=== PATIENT | female | born 1980 | race Caucasian/White ===

== ENCOUNTER 2018-04-18 10:04 | Emergency (ER) | payer MEDICAID ==
[~2018-04-18] VITALS: Ht 157.5 cm; Wt 75.0 kg
[~2018-04-18 10:04] MED LIST: BENZ1LOZ61 PO; IBUP-1051 PO; METH-360 PO; SILV20CR13 TOP
[2018-04-18 10:09] VITALS: BP 133/47
[2018-04-18] MEDS ORDERED: HYDR-565 PO (10:37)
== END 2018-04-18 10:48 | disposition home or self-care (01) ==
LOC: ER 10:05
DX: M25.562 Pain in left knee (principal); G89.29 Other chronic pain; F17.200 Nicotine dependence, unspecified, uncomplicated; Z98.51 Tubal ligation status
CPT/HCPCS: 99284

== ENCOUNTER 2020-04-09 13:27 | Emergency (ER) | payer MEDICAID ==
[~2020-04-09] VITALS: Ht 157.5 cm; Wt 78.3 kg
[2020-04-09 14:56] LABS: BASOPHILS % (AUTO) 0.7 % (0-1); EOSINOPHILS # (AUTO) 0.2 X10'3 (0-0.9); EOSINOPHILS % (AUTO) 2.2 % (0-6); HEMATOCRIT 46.6 % (35.0-45.0); HEMOGLOBIN 15.7 g/dl (12.0-16.0); LYMPHOCYTES # (AUTO) 1.9 X10'3 (1.1-4.8); LYMPHOCYTES % (AUTO) 26.4 % (21-51); MEAN CORPUSCULAR HEMOGLOBIN 32.6 PG (27.0-31.0); MEAN CORPUSCULAR HGB CONC 33.6 g/dL (33.0-36.5); MEAN CORPUSCULAR VOLUME 96.9 FL (78-98); MEAN PLATELET VOLUME 9.1 FL (7.4-10.4); MONOCYTES # (AUTO) 0.7 X10'3 (0-0.9); NEUTROPHILS # (AUTO) 4.6 X10'3 (1.8-7.7); NEUTROPHILS % (AUTO) 61.7 % (42-75); PLATELET COUNT 260 X10'3 (140-440); RED BLOOD COUNT 4.82 X10'6 (4.20-5.60); RED CELL DISTRIBUTION WIDTH 13.2 % (11.5-14.5); WHITE BLOOD COUNT 7.4 X10'3 (4.5-11.0)
[2020-04-09 15:09] LABS: ANION GAP 7 (8-16); BILIRUBIN,TOTAL 0.3 MG/DL (0.1-1.0); BLOOD UREA NITROGEN 12 MG/DL (7-18); BUN/CREATININE RATIO 13.2 (6.6-38.0); CALCIUM 9.4 MG/DL (8.5-10.1); CHLORIDE 103 MMOL/L (99-107); CREATININE 0.91 MG/DL (0.40-0.90); GLUCOSE 90 MG/DL (70-104); POTASSIUM 4.2 MMOL/L (3.5-5.1); SODIUM 138 MMOL/L (135-145); TOTAL CARBON DIOXIDE 28.3 MMOL/L (24-32); TOTAL PROTEIN 7.6 G/DL (6.4-8.2); eGFR 70 ML/MIN
[2020-04-09 15:10] LABS: ALANINE AMINOTRANSFERASE 24 U/L (12-78); ALBUMIN 3.7 G/DL (3.4-5.0); ALBUMIN/GLOBULIN RATIO 0.9 (1.1-1.5); ALKALINE PHOSPHATASE 57 IU/L (46-116); ASPARTATE AMINO TRANSFERASE 9 U/L (10-37); LIPASE 141 U/L (73-393)
[2020-04-09 15:37] LABS: BETA HCG,QUANTITATIVE < 1.0 mIU/ml
[2020-04-09] MEDS ORDERED: ketorolac tromethamine 15mg/ml inj. IM ONE (16:10)
[2020-04-09 18:00] VITALS: BP 131/54
[2020-04-09] MEDS ORDERED: ONDA4TAB6 PO (18:25)
[2020-04-09] MEDS ORDERED: FAMO20TA44 PO (18:25)
[2020-04-09] MEDS ORDERED: OMEP20CA15 PO (18:25)
[2020-04-09] MEDS ORDERED: SUCR1TAB34 PO (18:25)
== END 2020-04-09 18:40 | disposition home or self-care (01) ==
LOC: ER 13:27
DX: N83.292 Other ovarian cyst, left side (principal); R10.32 Left lower quadrant pain; R10.13 Epigastric pain; G89.29 Other chronic pain; Z98.51 Tubal ligation status; Z79.899 Other long term (current) drug therapy
CPT/HCPCS: 36415; 74176; 76830; 76856; 80053; 83605; 83690; 84702; 85025; 93976; 96372; 99285; J1885

== ENCOUNTER 2020-05-18 21:46 | Inpatient (IN) | payer MEDICAID ==
[~2020-05-18] VITALS: Ht 157.5 cm; Wt 79.7 kg
[~2020-05-18 21:46] MED LIST changes: +FAMO20TA44 PO; +OMEP20CA15 PO; +ONDA4TAB6 PO; +SUCR1TAB34 PO
[2020-05-18 22:26] LABS: CLARITY,URINE SLIGHTLY CLOUDY (Clear); COLOR,URINE AMBER (Yellow); GLUCOSE, URINE NEGATIVE (Neg); KETONES,URINE NEGATIVE (Neg); LEUKOCYTE ESTERASE ,URINE NEGATIVE (Neg); NITRITES, URINE NEGATIVE (Neg); OCCULT BLOOD,URINE LARGE (Neg); PROTEIN,URINE NEGATIVE (Neg); UROBILINOGEN,URINE >=8.0 E.U/dL (0.2-1.0)
[2020-05-18 22:26] LABS: BASOPHILS # (AUTO) 0.1 X10'3 (0-0.2); BASOPHILS % (AUTO) 0.6 % (0-1); EOSINOPHILS # (AUTO) 0.2 X10'3 (0-0.9); EOSINOPHILS % (AUTO) 1.7 % (0-6); HEMATOCRIT 42.1 % (35.0-45.0); LYMPHOCYTES % (AUTO) 11.4 % (21-51); MEAN CORPUSCULAR HEMOGLOBIN 32.6 PG (27.0-31.0); MEAN CORPUSCULAR HGB CONC 33.2 g/dL (33.0-36.5); MEAN CORPUSCULAR VOLUME 98.3 FL (78-98); MEAN PLATELET VOLUME 8.4 FL (7.4-10.4); MONOCYTES # (AUTO) 0.7 X10'3 (0-0.9); MONOCYTES % (AUTO) 7.4 % (2-12); NEUTROPHILS # (AUTO) 7.1 X10'3 (1.8-7.7); NEUTROPHILS % (AUTO) 78.9 % (42-75); PLATELET COUNT 303 X10'3 (140-440); RED BLOOD COUNT 4.28 X10'6 (4.20-5.60); RED CELL DISTRIBUTION WIDTH 13.1 % (11.5-14.5)
[2020-05-18 22:27] LABS: URINE HCG NEGATIVE (NEG)
[2020-05-18 22:28] LABS: UA COLLECTION TYPE CLN CATCH MIDSTREAM
[2020-05-18 22:38] LABS: ALANINE AMINOTRANSFERASE 664 U/L (12-78); ALBUMIN 3.6 G/DL (3.4-5.0); ALBUMIN/GLOBULIN RATIO 0.9 (1.1-1.5); ALKALINE PHOSPHATASE 274 IU/L (46-116); ANION GAP 7 (8-16); ASPARTATE AMINO TRANSFERASE 376 U/L (10-37); BILIRUBIN,TOTAL 1.7 MG/DL (0.1-1.0); BLOOD UREA NITROGEN 10 MG/DL (7-18); BUN/CREATININE RATIO 10.8 (6.6-38.0); CALCIUM 8.9 MG/DL (8.5-10.1); CHLORIDE 102 MMOL/L (99-107); CREATININE 0.93 MG/DL (0.40-0.90); GLUCOSE 103 MG/DL (70-104); LIPASE 93 U/L (73-393); POTASSIUM 3.9 MMOL/L (3.5-5.1); SODIUM 138 MMOL/L (135-145); TOTAL CARBON DIOXIDE 28.6 MMOL/L (24-32); TOTAL PROTEIN 7.6 G/DL (6.4-8.2); eGFR 68 ML/MIN
[2020-05-18 22:39] LABS: BACTERIA,URINE NONE SEEN /HPF (Neg); MUCUS STRANDS FEW /LPF (Neg); RBC,URINE TNTC /HPF (0-2); SQUAMOUS EPITHELIAL CELL,UR MODERATE /LPF (FEW); WBC,URINE 0-4 /HPF (0-4)
[2020-05-18] MEDS ORDERED: normal saline 1000ML IV soln IVB ONE (23:15)
[2020-05-18] MEDS ORDERED: ondansetron/PF 4mg/2ml inj IV ONE (23:15)
[2020-05-18] MEDS ORDERED: morphine 4 MG/ML inj SYRINge IV ONE (23:15)
[2020-05-19] VITALS (12 sets, daily range): BP systolic 96–129; BP diastolic 36–84
[2020-05-19] MEDS ORDERED: piperacillin/tazo 3.375gm/50ml 50 ML IV ONE (00:15)
[2020-05-19] MEDS ORDERED: magnesium hydroxide 30ml (MOM) UD suspension PO PRN (00:20)
[2020-05-19] MEDS ORDERED: magnesium 2GM in 50ml NS 50 ML IV PRN (00:20)
[2020-05-19] MEDS ORDERED: magnesium 4gm in 100ml NS 100 ML IV PRN (00:20)
[2020-05-19] MEDS ORDERED: mag hydrox/Alum hydrox/simeth 30ml oral suspension PO PRN (00:20)
[2020-05-19] MEDS ORDERED: potassium CL 10mEq/100ml bag 100 ML IV PRN ×2 (00:20)
[2020-05-19] MEDS ORDERED: potassium Cl 20 mEq SR tablet PO PRN ×2 (00:20)
[2020-05-19] MEDS ORDERED: morphine 2 MG/ML inj. syringe IV PRN (00:20)
[2020-05-19] MEDS ORDERED: acetaminophen 325mg tablet PO PRN (00:20)
[2020-05-19] MEDS ORDERED: magnesium Cl slow-release 64mg tablet PO PRN (00:20)
[2020-05-19] MEDS ORDERED: PENI250S2 PO (00:29)
[2020-05-19] MEDS: normal saline 1000ml 1,000 ML IV SCH ×3 (00:51→20:45)
--- NOTE | 2020-05-19 01:05 | NUR ---
received pt from er via w/c. Oriented to room and routine no complaints. amb ad danny steady. pt amb to shower. Addendum: 05/19/20 at 0142 by Barb Berkowitz RN Amended: Links added.
--- NOTE | 2020-05-19 06:50 | NUR ---
Patient in room [facility]. I have received report from Farrah RAPHAEL and had the opportunity to ask questions and assume patient care.
--- NOTE | 2020-05-19 06:51 | NUR ---
Problems reprioritized. Patient report given, questions answered & plan of care reviewed with DONAVON Rivera. Addendum: 05/19/20 at 0651 by Barb Berkowitz RN Amended: Links added.
--- NOTE | 2020-05-19 07:33 | NUR ---
Problems reprioritized. Patient report given, questions answered & plan of care reviewed with Dawn RAPHAEL.
--- NOTE | 2020-05-19 07:40 | NUR ---
Patient in room [facility]. I have received report from DONAVON GALINDO and had the opportunity to ask questions and assume patient care.
[2020-05-19] MEDS: K and/or MAG REPLACEMENT MC SCH ×2 (08:00→20:00)
--- NOTE | 2020-05-19 09:08 | NUR ---
CALLED RAMIRO FROM GI ABOUT ERCP SHE SAID SHE HAD NOT HEARD FROM THE DR AND WHEN SHE DOES SHE'LL CALL US BACK.
[2020-05-19] MEDS: ondansetron/PF 4mg/2ml inj IV PRN ×2 (09:14→20:44)
[2020-05-19] MEDS ORDERED: fentaNYL/PF 50MCG/1 ML 2ML syringe ONE (11:19)
[2020-05-19] MEDS ORDERED: MIDAZolam 5mg/5ml vial ONE (11:20)
[2020-05-19] MEDS ORDERED: LIDOcaine Viscous 15ml cup ONE (11:20)
[2020-05-19] MEDS ORDERED: diphenhydrAMINE 50 mg/ml inj ONE (11:20)
[2020-05-19] MEDS ORDERED: glucagon, human recombinant 1mg kit ONE (11:21)
[2020-05-19] MEDS ORDERED: iohexol 300 MG/1 ML 50ml polymer ONE (11:21)
[2020-05-19] MEDS ORDERED: levoFLOXACIN-Levaquin 500mg/D5 100 ML IV ONE (12:34)
--- NOTE | 2020-05-19 16:00 | NUR ---
PATIENT HAD , JANETH LUI, TAKE PURSE HOME.
[2020-05-20] VITALS (19 sets, daily range): BP systolic 107–161; BP diastolic 46–91
[2020-05-20 05:03] LABS: BASOPHILS % (AUTO) 0.8 % (0-1); EOSINOPHILS # (AUTO) 0.2 X10'3 (0-0.9); EOSINOPHILS % (AUTO) 3.7 % (0-6); HEMATOCRIT 38.4 % (35.0-45.0); HEMOGLOBIN 12.8 g/dl (12.0-16.0); LYMPHOCYTES # (AUTO) 1.4 X10'3 (1.1-4.8); LYMPHOCYTES % (AUTO) 34.3 % (21-51); MEAN CORPUSCULAR HEMOGLOBIN 32.9 PG (27.0-31.0); MEAN CORPUSCULAR HGB CONC 33.4 g/dL (33.0-36.5); MEAN CORPUSCULAR VOLUME 98.7 FL (78-98); MEAN PLATELET VOLUME 8.8 FL (7.4-10.4); MONOCYTES # (AUTO) 0.3 X10'3 (0-0.9); NEUTROPHILS # (AUTO) 2.2 X10'3 (1.8-7.7); NEUTROPHILS % (AUTO) 53.2 % (42-75); PLATELET COUNT 254 X10'3 (140-440); RED BLOOD COUNT 3.89 X10'6 (4.20-5.60); RED CELL DISTRIBUTION WIDTH 13.2 % (11.5-14.5); WHITE BLOOD COUNT 4.2 X10'3 (4.5-11.0)
[2020-05-20 05:15] LABS: ALANINE AMINOTRANSFERASE 448 U/L (12-78); ALBUMIN 2.7 G/DL (3.4-5.0); ALBUMIN/GLOBULIN RATIO 0.8 (1.1-1.5); ALKALINE PHOSPHATASE 207 IU/L (46-116); ANION GAP 9 (8-16); ASPARTATE AMINO TRANSFERASE 147 U/L (10-37); BILIRUBIN,TOTAL 1.1 MG/DL (0.1-1.0); BLOOD UREA NITROGEN 4 MG/DL (7-18); BUN/CREATININE RATIO 4.8 (6.6-38.0); CHLORIDE 109 MMOL/L (99-107); CREATININE 0.84 MG/DL (0.40-0.90); GLUCOSE 88 MG/DL (70-104); MAGNESIUM 1.8 MG/DL (1.5-2.4); POTASSIUM 3.9 MMOL/L (3.5-5.1); SODIUM 140 MMOL/L (135-145); TOTAL CARBON DIOXIDE 22.4 MMOL/L (24-32); TOTAL PROTEIN 6.1 G/DL (6.4-8.2); eGFR 76 ML/MIN
--- NOTE | 2020-05-20 06:35 | NUR ---
Problems reprioritized. Patient report given, questions answered & plan of care reviewed with DONAVON VELASQUEZ.
[2020-05-20] MEDS: normal saline 1000ml 1,000 ML IV SCH ×2 (07:18→16:20)
[2020-05-20] MEDS: K and/or MAG REPLACEMENT MC SCH (08:00)
[2020-05-20] MEDS ORDERED: morphine 2 MG/ML inj. syringe IV PRN (10:20)
[2020-05-20] MEDS ORDERED: fentaNYL/PF 50MCG/1 ML 2ML syringe IV PRN ×2 (10:20)
[2020-05-20] MEDS ORDERED: labetalol 20mg/4ml (5mg/ml) syringe IV PRN (10:20)
[2020-05-20] MEDS ORDERED: hydrALAZINE 20mg/ml inj. IV PRN (10:20)
[2020-05-20] MEDS ORDERED: ringers solution, lacted 1,000 ML IV SCH (10:20)
[2020-05-20] MEDS ORDERED: ondansetron/PF 4mg/2ml inj IV PRN (10:20)
[2020-05-20] MEDS ORDERED: morphine 4 MG/ML inj SYRINge IV PRN (10:20)
[2020-05-20] MEDS ORDERED: LIDOcaine 1% 30ml preserv. free vial ONE (10:28)
[2020-05-20] MEDS ORDERED: BUPIVAcaine/PF 2.5 mg/ml (0.25%) 30ml vial ONE (10:28)
[2020-05-20] MEDS ORDERED: INDOCYANINE GREEN 25 MG/10 ML VIAL IV ONE (10:30)
[2020-05-20] MEDS ORDERED: midazolam 2 mg/2 ml injection ONE (11:06)
[2020-05-20] MEDS ORDERED: fentaNYL/PF 50MCG/1 ML 2ML syringe ONE (11:06)
[2020-05-20] MEDS ORDERED: propofol inj 20 ML IV ONE (11:07)
[2020-05-20] MEDS ORDERED: rocuronium 10mg/ml inj IV ONE (11:07)
[2020-05-20] MEDS ORDERED: LIDOcaine 2% (20mg/ml) 5ml vial ONE (11:07)
--- NOTE | 2020-05-20 11:07 | NUR ---
Student documentation: I have reviewed and agree with all interventions, assessments performed and documented by Octavio, executive director of nursing.
--- NOTE | 2020-05-20 11:07 | NUR ---
Student Medication Administration: For this medication-pass time frame, all medication were reviewed, dispensed, administered and documented per hospital policy by antolin Cunningham.
[2020-05-20] MEDS ORDERED: ceFAZolin 1000mg inj ONE ×2 (11:28)
[2020-05-20] MEDS ORDERED: glycopyrrolate 0.2mg/ml inj ONE (11:30)
[2020-05-20] MEDS ORDERED: ondansetron/PF 4mg/2ml inj ONE (11:30)
[2020-05-20] MEDS ORDERED: HYDROcodone/acetaminophen 10/325mg tab PO PRN (12:30)
--- NOTE | 2020-05-20 12:30 | NUR ---
Received from OR via BED, accompanied by Anesthesiologist. DR ryan and report given by Anesthesiolgist. PATIENT WAKING UP, NO S/S OF PAIN, V/S WNL, SCD ON, 20G PIV rUE, BANDAIDS TO ABDOMEN CDI.
--- NOTE | 2020-05-20 13:30 | NUR ---
PATIENT a&ox4, c/o mild PAIN, V/S WNL, SCD ON, 20G PIV rUE, BANDAIDS TO ABDOMEN CDI. she has ambulated and voided. PATIENT TAKEN TO 360b WITH ALL BELONGINGS AND HOOKED UP TO MONITORS IN ROOM AND REPORT GIVEN TO surgical assistant WHO HAS TAKEN OVER PATIENT CARE.
--- NOTE | 2020-05-20 18:11 | NUR ---
Patient in room [facility]. I have received report from Matty RAPHAEL and had the opportunity to ask questions and assume patient care.
[2020-05-20] MEDS ORDERED: OXYC-150 PO (18:19)
--- NOTE | 2020-05-20 18:53 | NUR ---
Problems reprioritized. Patient report given, questions answered & plan of care reviewed with Shaylee RAPHAEL.
--- NOTE | 2020-05-20 19:25 | NUR ---
Patient discharged home in private vehicle driven by her . Patient had all belongings, discharge paperwork and prescription to take to pharmacy. A&Ox4 and in no distress.
== END 2020-05-20 19:23 | disposition home or self-care (01) | DRG 263 ==
LOC: ER 21:46 → ED HOLD 05-19 00:19 → SUR 3N 05-19 01:05
PROVIDERS: ADMIT Family Medicine; ATTEND Family Medicine
PROC: 0FC98ZZ Extirpation of Matter from Common Bile Duct, Via Natural or Artificial Opening Endoscopic (ICD-10-PCS; 2020-05-19)
PROC: BF131ZZ Fluoroscopy of Gallbladder and Bile Ducts using Low Osmolar Contrast (ICD-10-PCS; 2020-05-19)
PROC: 8E0W4CZ Robotic Assisted Procedure of Trunk Region, Percutaneous Endoscopic Approach (ICD-10-PCS; 2020-05-20)
PROC: BF131ZZ Fluoroscopy of Gallbladder and Bile Ducts using Low Osmolar Contrast (ICD-10-PCS; 2020-05-20)
PROC: 0FT44ZZ Resection of Gallbladder, Percutaneous Endoscopic Approach (ICD-10-PCS; principal; 2020-05-20 11:18)
DX: K80.67 Calculus of gallbladder and bile duct with acute and chronic cholecystitis with obstruction (principal); F17.210 Nicotine dependence, cigarettes, uncomplicated; Z87.442 Personal history of urinary calculi; Z98.51 Tubal ligation status; Z79.899 Other long term (current) drug therapy
CPT/HCPCS: 36415; 43262; 43264; 74176; 80053; 81001; 81025; 82948; 83690; 83735; 84145; 85025; 87081; 96365; 96375; 99152; 99153; 99285; A4215; A4618; A4620; C1769; G0378; J0690; J1200; J1610; J1956; J2001; J2250; J2270; J2405; J2543; J2704; J3010; J3490; J7030; J7040; J7120; Q9967

== ENCOUNTER 2022-01-08 21:24 | Emergency (ER) | payer MEDICAID ==
[~2022-01-08] VITALS: Ht 157.5 cm; Wt 87.3 kg
[~2022-01-08 21:24] MED LIST changes: -BENZ1LOZ61 PO; -FAMO20TA44 PO; -IBUP-1051 PO; -METH-360 PO; -OMEP20CA15 PO; -ONDA4TAB6 PO; +OXYC-150 PO; +PENI250S2 PO; -SILV20CR13 TOP; -SUCR1TAB34 PO
[2022-01-08 21:43] VITALS: BP 113/50
== END 2022-01-09 00:34 | disposition left against medical advice (07) ==
LOC: ER 21:25
DX: R21 Rash and other nonspecific skin eruption (principal); Z53.21 Procedure and treatment not carried out due to patient leaving prior to being seen by health care provider